=== PATIENT | female | born 1960 | race Caucasian/White ===

== ENCOUNTER 2016-06-09 02:53 | Emergency (ER) | payer OTHER ==
[~2016-06-09] VITALS: Ht 152.4 cm; Wt 68.9 kg
[~2016-06-09 02:53] MED LIST: ALBU2.5V5 NEB; ALIS150T PO; ALPR0.5T6 PO; AMIO200T2 NG; AMIO200T2 PO; AMLO10TA2 PO; AMLO10TA4 PO; APRE30TA2 PO; ASPI-482 PO; ASPI81TA9 PO; ATOR40TA PO; ATOR40TA59 PO; BUDE0.5A NEB; BUDE10.2 IH; CEFP100T PO; CLOP75TA27 PO; ESCI10TA PO; ESCI10TA10 PO; FULV250D IM; FURO-68 PO; FURO40TA4 PO; IPRA3AMP NEB; LISI-334 PO; LISI10TA2 PO; LISI2.5T PO; LISI40TA PO; LOSA1TAB17 PO; METH4TAB2 PO; METO100T11 PO; METO25TA9 PO; METO50TA2 PO; MULT-208 PO; MULT1TAB90 PO; NAPR500T PO; NAPR500T3 PO; NIAC500T PO; ONDA8TAB9 PO; OXYC-323 PO; OXYC10SY PO; OXYC10TA PO; OXYC15TA PO; OXYC15TA60 PO; OXYC30TA PO; OXYC40TA21 PO; OXYC60TA7 PO; PANT40TA3 PO; PANT40TA5 PO; POTA10CA PO; POTA20TA4 PO; POTA20TA82 PO; PRAS10TA4 PO; PROAIR HFA8.5 GM INH
[2016-06-09 03:34] LABS: BASO # 0.1 x10^3/uL (0.0-0.2); BASO % 1 % (0-3); EOS % 8 % (0-3); HEMATOCRIT 28.3 % (36.0-47.0); HEMOGLOBIN 9.1 g/dL (12.0-15.5); LYMPH # 1.4 x10^3/uL (1.0-4.8); LYMPH % 21 % (24-48); MEAN CORPUSCULAR HEMOGLOBIN 27 pg (25-35); MEAN CORPUSCULAR HGB CONC 32 g/dL (31-37); MEAN CORPUSCULAR VOLUME 84 fL (79-100); MONO % 7 % (0-9); NEUT % 63 % (31-73); PLATELET COUNT 278 x10^3/uL (140-400); RED BLOOD COUNT 3.38 x10^6/uL (3.50-5.40); RED CELL DISTRIBUTION WIDTH 16.5 % (11.5-14.5); WHITE BLOOD COUNT 6.9 x10^3/uL (4.0-11.0)
[2016-06-09 03:42] LABS: BARBITURATES NEG (NEG); BENZODIAZEPINES NEG (NEG); CANNABINOIDS NEG (NEG); COCAINE NEG (NEG); ETHANOL, URINE NEG (NEG); METHADONE NEG (NEG); OPIATES POS (NEG); PHENCYCLIDINE NEG (NEG)
[2016-06-09 03:45] LABS: CALCIUM 8.6 mg/dL (8.5-10.1); GFR 57.8; POTASSIUM 3.9 mmol/L (3.5-5.1)
--- NOTE | 2016-06-09 03:47 | PHYS DOC ---
Past Medical History Past Medical History: Anxiety, Bipolar, CAD, Cancer, CHF, COPD, Depression, GERD, High Cholesterol, Hypertension, [place], MRSA, Pneumonia Additional Past Medical Histor: SLEEP APNEA BREAST CA METS TO SPINE BACK PAIN Past Surgical History: Appendectomy Additional Past Surgical Histo: MASTECTOMY Alcohol Use: None Drug Use: None Adult General Chief Complaint Chief Complaint: SHORTNESS OF BREATH HPI HPI Patient is a 55 year old female who presents with in episode of difficulty breathing that occurred tonight. She went to bed feeling well, and woke with difficulty breathing and anxiety. She used an albuterol nebulizer and had resolution of her symptoms. She came here to make sure that she did not have recurring pneumonia. She states she becomes very anxious about sleeping since her cardiac arrest in April. She does however state she has gained 10 pounds in the past week. She states she is compliant with her medications as prescribed. She currently denies dyspnea, cough, fever or chills, palpitations, diaphoresis, chest pain, nausea or vomiting, abdominal pain, leg pain or swelling. She also asked for some pain medication while here for her chronic back pain. Review of Systems Review of Systems Constitutional: Denies fever or chills [] Eyes: Denies change in visual acuity, redness, or eye pain [] HENT: Denies nasal congestion or sore throat [] Respiratory: Denies cough [] Cardiovascular: No additional information not addressed in HPI [] GI: Denies abdominal pain, nausea, vomiting, bloody stools or diarrhea [] : Denies dysuria or hematuria [] Musculoskeletal: Denies back pain or joint pain [] Integument: Denies rash or skin lesions [] Neurologic: Denies headache, focal weakness or sensory changes [] Endocrine: Denies polyuria or polydipsia [] Current Medications Current Medications Current Medications Medications (Trade) Dose Ordered Sig/Reagan Start Time Stop Time Status Last Admin Dose Admin Furosemide (Lasix) 20 mg 1X ONCE 06/09/16 04:30 06/09/16 04:31 06/09/16 04:21 20 MG Morphine Sulfate 5 mg 1X ONCE 06/09/16 04:30 06/09/16 04:31 06/09/16 04:22 5 MG Allergies Allergies Allergies Coded Allergies Type Severity Reaction Last Updated Verified propoxyphene Allergy Severe 06/09/16 Yes Latex, Natural Rubber Allergy Intermediate 10/12/14 Yes duloxetine Allergy Intermediate 06/09/16 Yes propoxyphene HCl Allergy Intermediate 10/12/14 Yes I S O L A T I O N *CONTACT* Allergy Unknown 04/03/16 Yes tramadol Adverse Reaction Intermediate Nausea and Vomiting 04/03/16 Yes Physical Exam Physical Exam Constitutional: Well developed, well nourished, no acute distress, non-toxic appearance. [] HENT: Normocephalic, atraumatic, bilateral external ears normal, oropharynx moist, nose normal. [] Eyes: PERRLA, EOMI. [] Neck: Normal range of motion, supple, no stridor. [] Cardiovascular:Heart rate regular rhythm [] Lungs & Thorax: Bilateral breath sounds clear to auscultation [] Abdomen: Bowel sounds normal, soft, no tenderness. [] Skin: Warm, dry. [] Back: No tenderness, no CVA tenderness. [] Extremities: No tenderness, ROM intact, bilateral 1+ lower extremity edema, no palpable cord. [] Neurologic: Alert and oriented X 3, normal motor function, normal sensory function, no focal deficits noted. [] Psychologic: Affect normal, judgement normal, mood normal. [] Current Patient Data Vital Signs Vital Signs Date Time Temp Pulse Resp B/P Pulse Ox O2 Delivery O2 Flow Rate FiO2 06/09/16 04:22 16 Room Air 06/09/16 03:05 98.3 101 194/96 97 98.3 Lab Values Laboratory Tests Test 06/09/16 03:05 06/09/16 03:11 White Blood Count 6.9x10^3/uL (4.0-11.0) Red Blood Count 3.38x10^6/uL (3.50-5.40) L Hemoglobin 9.1g/dL (12.0-15.5) L Hematocrit 28.3% (36.0-47.0) L Mean Corpuscular Volume 84fL (79-100) Mean Corpuscular Hemoglobin 27pg (25-35) Mean Corpuscular Hemoglobin Concent 32g/dL (31-37) Red Cell Distribution Width 16.5% (11.5-14.5) H Platelet Count 278x10^3/uL (140-400) Neutrophils (%) (Auto) 63% (31-73) Lymphocytes (%) (Auto) 21% (24-48) L Monocytes (%) (Auto) 7% (0-9) Eosinophils (%) (Auto) 8% (0-3) H Basophils (%) (Auto) 1% (0-3) Neutrophils # (Auto) 4.4x10^3uL (1.8-7.7) Lymphocytes # (Auto) 1.4x10^3/uL (1.0-4.8) Monocytes # (Auto) 0.5x10^3/uL (0.0-1.1) Eosinophils # (Auto) 0.5x10^3/uL (0.0-0.7) Basophils # (Auto) 0.1x10^3/uL (0.0-0.2) Sodium Level 138mmol/L (136-145) Potassium Level 3.9mmol/L (3.5-5.1) Chloride Level 100mmol/L (98-107) Carbon Dioxide Level 30mmol/L (21-32) Anion Gap 8 (6-14) Blood Urea Nitrogen 10mg/dL (7-20) Creatinine 1.0mg/dL (0.6-1.0) Estimated GFR (Cockcroft-Gault) 57.8 Glucose Level 93mg/dL (70-99) Calcium Level 8.6mg/dL (8.5-10.1) Troponin I Quantitative 0.033ng/mL (0.000-0.055) [id number]-[id number]-G-Type Natriuretic Peptide 1253pg/mL (0-124) H Urine Opiates Screen Pos (NEG) Urine Methadone Screen Neg (NEG) Urine Barbiturates Neg (NEG) Urine Phencyclidine Screen Neg (NEG) Urine Amphetamine/Methamphetamine Neg (NEG) Urine Benzodiazepines Screen Neg (NEG) Urine Cocaine Screen Neg (NEG) Urine Cannabinoids Screen Neg (NEG) Urine Ethyl Alcohol Neg (NEG) Laboratory Tests 06/09/16 03:05 Laboratory Tests 06/09/16 03:05 EKG EKG EKG as interpreted by me as sinus tachycardia, rate 102, no ST-T changes, normal intervals, no ectopy Radiology/Procedures Radiology/Procedures Chest xray as interpreted by me with no acute cardiopulmonary disease process Course & Med Decision Making Course & Med Decision Making Pertinent Labs and Imaging studies reviewed. (See chart for details) Workup is largely unremarkable, including chest x-ray and laboratory improvement from prior exam. With history of weight gain and lower extremity swelling, will give extra dose of Lasix. Encouraged to watch liquid intake and follow-up with her primary care doctor and special trackwork blacksmith. Return precautions given. She understands and agrees with plan. Dragon Disclaimer Dragon Disclaimer This electronic medical record was generated, in whole or in part, using a voice recognition dictation system. Departure Departure Impression: Primary Impression: Anxiety Additional Impressions: Dyspnea, unspecified CHF (congestive heart failure) Back pain Disposition: HOME, SELF-CARE Condition: STABLE Referrals: MOMO CONSTANTINO MD (PCP) Patient Instructions: Heart Failure, [id number] Additional Instructions: Continue your current medications. Follow-up with your primary care doctor and special trackwork blacksmith within one week. Please call for appointment. Return for any concerns. Problem Qualifiers Additional Impressions: CHF (congestive heart failure) Congestive heart failure type: unspecified congestive heart failure type Congestive heart failure chronicity: chronic Qualified Code: I50.9 - Heart failure, unspecified Back pain Back pain location: low back pain Chronicity: chronic Back pain laterality : midline Sciatica presence: without sciatica Qualified Code: M54.5 - Low back pain Alonzo GOODE MD Jun 09, 2016 03:47
[2016-06-09] MEDS ORDERED: FUROSEMIDE 20 MG/2 ML VIAL IVP ONE (04:30)
[2016-06-09] MEDS ORDERED: MORPHINE SULFATE 10 MG/ML VIAL. IV ONE (04:30)
[2016-06-09 04:35] VITALS: BP 132/79
--- NOTE | 2016-06-09 06:16 | EKG ---
[facility] [address] [place] [address] Test Date: 2016-06-09 Test Time: 03:07:20 Pat Name: JOCELYN NICHOLSON Department: Room: Gender: F Caterers Helper: TW EMT : 1960 Requested By: Alonzo GOODE Order Number: [id number] Reading MD: Floyd Escobar Measurements Intervals [place] Rate: 102 P: 40 [place]: 144 QRS: -5 QRSD: 100 T: 26 QT: 338 QTc: 445 Interpretive Statements SINUS TACHYCARDIA QRS(T) CONTOUR ABNORMALITY CONSIDER ANTEROSEPTAL MYOCARDIAL DAMAGE CONSISTENT WITH INFERIOR INFARCT Electronically Signed On 06-10-2016 15:31:41 HEALTH FACILITIES SURVEYOR by Floyd Escobar
--- NOTE | 2016-06-09 07:17 | RAD ---
EXAM: Chest, 2 views. HISTORY: Shortness of breath. COMPARISON: 05/14/2016. FINDINGS: Frontal and lateral views of the chest are obtained. There is stable mild diffuse increased interstitial opacity. There is no consolidation, effusion or pneumothorax. The heart is normal in size.. IMPRESSION: Stable diffuse increased interstitial opacity suggesting congestion.
== END 2016-06-09 04:43 | disposition home or self-care (01) ==
LOC: ER 02:53
DX: F41.9 Anxiety disorder, unspecified (principal); G89.29 Other chronic pain; M54.5 Low back pain; R06.00 Dyspnea, unspecified; I50.9 Heart failure, unspecified; I11.0 Hypertensive heart disease with heart failure; I25.2 Old myocardial infarction; E78.00 Pure hypercholesterolemia, unspecified; G47.30 Sleep apnea, unspecified; J44.9 Chronic obstructive pulmonary disease, unspecified; Z88.6 Allergy status to analgesic agent; Z88.8 Allergy status to other drugs, medicaments and biological substances; Z91.041 Radiographic dye allergy status; Z91.040 Latex allergy status
CPT/HCPCS: 36415; 71020; 80048; 83880; 84484; 85027; 93005; 96374; 96375; 99285; G0481; J2270

== ENCOUNTER 2016-06-21 15:17 | Emergency (ER) | payer OTHER ==
[~2016-06-21] VITALS: Ht 157.5 cm; Wt 70.8 kg
[2016-06-21] MEDS ORDERED: PREDNISONE 10 MG TABLET PO ONE (15:45)
[2016-06-21] MEDS ORDERED: MORPHINE SULFATE 4 MG/ML DISP.SYRIN. IV ONE (15:45)
[2016-06-21] MEDS ORDERED: IPRATRPIUM/ALBUTEROL 0.5/2.5MG 3 ML NEBU. NEB ONE (15:45)
--- NOTE | 2016-06-21 15:50 | PHYS DOC ---
Past Medical History Past Medical History: Anxiety, Bipolar, CAD, Cancer, CHF, COPD, Depression, GERD, High Cholesterol, Hypertension, [place], MRSA, Pneumonia Additional Past Medical Histor: SLEEP APNEA BREAST CA METS TO SPINE BACK PAIN Past Surgical History: Appendectomy Additional Past Surgical Histo: MASTECTOMY Alcohol Use: None Drug Use: None Adult General Chief Complaint Chief Complaint: SHORTNESS OF BREATH HPI HPI Patient is a 55 year old female with extensive PMH who presents with SOB. Patient reports she has been feeling SOB since her admission to the hospital in May (when she had cardiac arrest). Today she felt like she just could not catch her breath. She also reports wheezing and cough. Patient denies chest pain. She does complain of chronic back pain. No clear inciting or mitigating factors. She has used her COPD inhalers at home with insufficient relief. Review of Systems Review of Systems Constitutional: Denies fever or chills Eyes: Denies change in visual acuity or eye pain HENT: Denies nasal congestion or sore throat Respiratory: Cough, shortness of breath, wheezing Cardiovascular: Denies chest pain GI: Denies abdominal pain, nausea, vomiting, bloody stools or diarrhea : Denies dysuria or hematuria Musculoskeletal: Chronic back pain Integument: Chronic skin sores Neurologic: Denies headache, focal weakness or sensory changes Current Medications Current Medications Current Medications Medications (Trade) Dose Ordered Sig/Reagan Start Time Stop Time Status Last Admin Dose Admin Albuterol/ Ipratropium (Duoneb) 3 ml 1X ONCE 06/21/16 15:45 06/21/16 15:47 DC 06/21/16 16:06 3 ML Morphine Sulfate 4 mg 1X ONCE 06/21/16 15:45 06/21/16 15:47 DC 06/21/16 16:32 4 MG Prednisone (Prednisone) 60 mg 1X ONCE 06/21/16 15:45 06/21/16 15:47 DC 06/21/16 16:32 60 MG Allergies Allergies Allergies Coded Allergies Type Severity Reaction Last Updated Verified propoxyphene Allergy Severe 06/09/16 Yes Latex, Natural Rubber Allergy Intermediate 10/12/14 Yes duloxetine Allergy Intermediate 06/09/16 Yes propoxyphene HCl Allergy Intermediate 10/12/14 Yes I S O L A T I O N *CONTACT* Allergy Unknown 04/03/16 Yes tramadol Adverse Reaction Intermediate Nausea and Vomiting 04/03/16 Yes Physical Exam Physical Exam Constitutional: Well developed, well nourished, no acute distress, non-toxic appearance HENT: Normocephalic, atraumatic, bilateral external ears normal Eyes: EOMI, conjunctiva normal, no discharge Neck: Normal range of motion, no stridor Cardiovascular: Heart rate normal, regular rhythm, murmur noted Lungs & Thorax: Diffuse expiratory wheezing Abdomen: Bowel sounds normal, soft, non-distended, no TTP Skin: Warm, dry. Scattered skin ulcers in various stages of healing. Extremities: No obvious deformity, no edema Neurologic: Alert and oriented X 3, no gross deficits noted Current Patient Data Vital Signs Vital Signs Date Time Temp Pulse Resp B/P Pulse Ox O2 Delivery O2 Flow Rate FiO2 06/21/16 16:32 24 95 Room Air 06/21/16 15:40 98.7 68 148/89 98.7 Lab Values Laboratory Tests Test 06/21/16 16:20 White Blood Count 6.4x10^3/uL (4.0-11.0) Red Blood Count 3.51x10^6/uL (3.50-5.40) Hemoglobin 9.3g/dL (12.0-15.5) L Hematocrit 28.3% (36.0-47.0) L Mean Corpuscular Volume 81fL (79-100) Mean Corpuscular Hemoglobin 26pg (25-35) Mean Corpuscular Hemoglobin Concent 33g/dL (31-37) Red Cell Distribution Width 17.0% (11.5-14.5) H Platelet Count 261x10^3/uL (140-400) Neutrophils (%) (Auto) 75% (31-73) H Lymphocytes (%) (Auto) 12% (24-48) L Monocytes (%) (Auto) 9% (0-9) Eosinophils (%) (Auto) 4% (0-3) H Basophils (%) (Auto) 1% (0-3) Neutrophils # (Auto) 4.8x10^3uL (1.8-7.7) Lymphocytes # (Auto) 0.8x10^3/uL (1.0-4.8) L Monocytes # (Auto) 0.5x10^3/uL (0.0-1.1) Eosinophils # (Auto) 0.2x10^3/uL (0.0-0.7) Basophils # (Auto) 0.0x10^3/uL (0.0-0.2) Sodium Level 140mmol/L (136-145) Potassium Level 3.9mmol/L (3.5-5.1) Chloride Level 103mmol/L (98-107) Carbon Dioxide Level 27mmol/L (21-32) Anion Gap 10 (6-14) Blood Urea Nitrogen 7mg/dL (7-20) Creatinine 0.9mg/dL (0.6-1.0) Estimated GFR (Cockcroft-Gault) 65.2 Glucose Level 87mg/dL (70-99) Calcium Level 8.7mg/dL (8.5-10.1) Troponin I Quantitative 0.028ng/mL (0.000-0.055) [id number]-C-Type Natriuretic Peptide 954pg/mL (0-124) H Laboratory Tests 06/21/16 16:20 Laboratory Tests 06/21/16 16:20 EKG EKG EKG (my read): sinus rhythm, rate 61, normal axis, intervals wnl, no acute ischemic changes Radiology/Procedures Radiology/Procedures CXR (my read): No significant change from prior two films Course & Med Decision Making Course & Med Decision Making Pertinent Labs and Imaging studies reviewed. (See chart for details) Patient is 55 year old female who presents with SOB. Suspect COPD exacerbation based on history and physical exam. Dose of prednisone and Duonebs ordered. Will check EKG, CXR, labs to evaluate. EKG ok per my read. CXR similar to prior per my read. Labs notable for slightly elevated BNP; this value is lower than past few values and patient does not appear overloaded clinically. Troponin continues to trend down from April. Discussed results with patient, who reports SOB resolved after treatments. Discussed inpatient vs outpatient management of COPD with patient; she would like to go home today if possible. Given extensive medical history, I discussed case with Dr. Constantino. As patient feeling better and already has appt with Dr. Constantino scheduled for this upcoming week, ok to send patient home with steroid burst. Patient says she has sufficient inhalers at home and does not need rx for refill. I gave patient strict return precautions and counseled on the importance of making sure she makes follow up appt. Patient discharged home with rx for steroid burst. Neo Disclaimer Jannon Disclaimer This electronic medical record was generated, in whole or in part, using a voice recognition dictation system. Departure Departure Impression: Primary Impression: COPD exacerbation Disposition: HOME, SELF-CARE Condition: IMPROVED Referrals: MOMO CONSTANTINO MD (PCP) Patient Instructions: Chronic Obstructive Pulmonary Disease Exacerbation Additional Instructions: Thank you for allowing us to provide care today in the Emergency Department. Take the provided medication as directed. Continue to use the inhalers that you have at home. Keep your follow up appointment with your primary care doctor. Return promptly to the Emergency Department if you develop any new or concerning symptoms. Scripts Prednisone 50 Mg Tablet1 Tab PO DAILY #4 TAB start taking 06/22/16 Prov:SHANELLE CASE MD 06/21/16 SHANELLE CASE MD Jun 21, 2016 15:49
[2016-06-21 16:30] VITALS: BP 117/86
[2016-06-21 16:36] LABS: BASO % 1 % (0-3); EOS % 4 % (0-3); HEMATOCRIT 28.3 % (36.0-47.0); HEMOGLOBIN 9.3 g/dL (12.0-15.5); LYMPH # 0.8 x10^3/uL (1.0-4.8); LYMPH % 12 % (24-48); MEAN CORPUSCULAR HEMOGLOBIN 26 pg (25-35); MEAN CORPUSCULAR HGB CONC 33 g/dL (31-37); MEAN CORPUSCULAR VOLUME 81 fL (79-100); MONO % 9 % (0-9); NEUT % 75 % (31-73); PLATELET COUNT 261 x10^3/uL (140-400); RED BLOOD COUNT 3.51 x10^6/uL (3.50-5.40); WHITE BLOOD COUNT 6.4 x10^3/uL (4.0-11.0)
[2016-06-21 16:57] LABS: CALCIUM 8.7 mg/dL (8.5-10.1); CREATININE 0.9 mg/dL (0.6-1.0); GFR 65.2; POTASSIUM 3.9 mmol/L (3.5-5.1)
[2016-06-21] MEDS ORDERED: PRED50TA PO (17:39)
--- NOTE | 2016-06-22 08:52 | RAD ---
Chest, 2 views, 06/21/2016: History: Shortness of breath, hypertension Comparison is made to a study from 06/09/2016. The heart is mildly enlarged. Coronary stents and/or calcifications are present. There is calcific plaquing of the thoracic aorta. The pulmonary vascularity is normal. There is minimal linear atelectasis and/or scarring in the left base. No consolidating infiltrate is seen. There is no evidence of pleural fluid. Moderate multilevel degenerative changes are evident in the spine. IMPRESSION: 1. Mild left basilar linear atelectasis and/or scarring. 2. Mild cardiomegaly with coronary artery disease.
--- NOTE | 2016-06-22 11:36 | EKG ---
[facility] [address] [place] [address] Test Date: 2016-06-21 Test Time: 15:28:44 Pat Name: JOCELYN INCHOLSON Department: Room: Gender: F Compounder Flavorings: : 1960 Requested By: SHANELLE CASE Order Number: [id number] Reading MD: Anastasiia Gallegos Measurements Intervals [place] Rate: 61 P: 39 [place]: 162 QRS: 6 QRSD: 98 T: 22 QT: 406 QTc: 410 Interpretive Statements SINUS RHYTHM QRS(T) CONTOUR ABNORMALITY CONSIDER ANTEROLATERAL MYOCARDIAL DAMAGE AGE UNDETERMINED ABNORMAL ECG Electronically Signed On 06-23-2016 0:36:24 SPINDLE SANDER by Anastasiia Gallegos
== END 2016-06-21 17:45 | disposition home or self-care (01) ==
LOC: ER 15:17
DX: J44.1 Chronic obstructive pulmonary disease with (acute) exacerbation (principal); E78.00 Pure hypercholesterolemia, unspecified; I25.2 Old myocardial infarction; G47.30 Sleep apnea, unspecified; I50.9 Heart failure, unspecified; G89.29 Other chronic pain; I25.10 Atherosclerotic heart disease of native coronary artery without angina pectoris; Z88.8 Allergy status to other drugs, medicaments and biological substances; Z88.6 Allergy status to analgesic agent; Z91.041 Radiographic dye allergy status; Z91.040 Latex allergy status
CPT/HCPCS: 36415; 71020; 80048; 83880; 84484; 85027; 93005; 94640; 96374; 99285; J2270; J7512; J7620

== ENCOUNTER 2016-07-10 05:22 | Emergency (ER) | payer OTHER ==
[~2016-07-10] VITALS: Ht 157.5 cm; Wt 73.5 kg
[~2016-07-10 05:22] MED LIST changes: +PRED50TA PO
--- NOTE | 2016-07-10 05:48 | PHYS DOC ---
Past Medical History Past Medical History: Anxiety, Bipolar, CAD, Cancer, CHF, COPD, Depression, GERD, High Cholesterol, Hypertension, [place], MRSA, Pneumonia Additional Past Medical Histor: SLEEP APNEA, BREAST CA METS TO SPINE, BACK PAIN Past Surgical History: Appendectomy Additional Past Surgical Histo: MASTECTOMY Alcohol Use: None Drug Use: None Adult General Chief Complaint Chief Complaint: SHORTNESS OF BREATH HPI HPI Patient is a 55 year old female with complex past medical history who presents with difficulty breathing upon awakening. She notes feeling in her normal state of health prior to going to bed. She woke up short of breath and felt wheezy and used her home nebulizer with some improvement in symptoms, but not complete resolution. She denies orthopnea, weight gain, chest pain, palpitations, diaphoresis, hemoptysis, leg pain or swelling, abdominal pain, nausea or vomiting, fever or chills. She was treated for COPD exacerbation with prednisone burst starting 06/21/16. She has an appointment with her primary care doctor this afternoon. Review of Systems Review of Systems Constitutional: Denies fever or chills [] Eyes: Denies change in visual acuity, redness, or eye pain [] HENT: Denies nasal congestion or sore throat [] Respiratory: Denies cough [] Cardiovascular: No additional information not addressed in HPI [] GI: Denies abdominal pain, nausea, vomiting, bloody stools or diarrhea [] : Denies dysuria or hematuria [] Musculoskeletal: Denies back pain or joint pain [] Integument: Denies rash or skin lesions [] Neurologic: Denies headache, focal weakness or sensory changes [] Endocrine: Denies polyuria or polydipsia [] Current Medications Current Medications Current Medications Medications (Trade) Dose Ordered Sig/Reagan Start Time Stop Time Status Last Admin Dose Admin Albuterol/ Ipratropium (Duoneb) 3 ml 1X ONCE 07/10/16 06:00 07/10/16 06:01 DC 07/10/16 05:51 3 ML Allergies Allergies Allergies Coded Allergies Type Severity Reaction Last Updated Verified propoxyphene Allergy Severe 06/09/16 Yes Latex, Natural Rubber Allergy Intermediate 10/12/14 Yes duloxetine Allergy Intermediate 06/09/16 Yes propoxyphene HCl Allergy Intermediate 10/12/14 Yes I S O L A T I O N *CONTACT* Allergy Unknown 04/03/16 Yes tramadol Adverse Reaction Intermediate Nausea and Vomiting 04/03/16 Yes Physical Exam Physical Exam Constitutional: Well developed, well nourished, no acute distress, non-toxic appearance. [] HENT: Normocephalic, atraumatic, bilateral external ears normal, oropharynx moist, nose normal. [] Eyes: PERRLA, EOMI. [] Neck: Normal range of motion, supple. [] Cardiovascular: Heart rate regular rhythm [] Lungs & Thorax: Mild bilateral wheezing, good aeration, normal respiratory effort, speaking in full sentences [] Abdomen: Bowel sounds normal, soft, no tenderness. [] Skin: Warm, dry, no erythema, no rash. [] Back: Normal range of motion. [] Extremities: No tenderness, ROM intact, trace pretibial edema bilaterally, no palpable cord. [] Neurologic: Alert and oriented X 3, normal motor function, normal sensory function, no focal deficits noted. [] Psychologic: Affect normal, judgement normal, mood normal. [] Current Patient Data Vital Signs Vital Signs Date Time Temp Pulse Resp B/P Pulse Ox O2 Delivery O2 Flow Rate FiO2 07/10/16 05:52 97 Room Air 07/10/16 05:32 98.2 96 22 117/86 98.2 Lab Values Laboratory Tests Test 07/10/16 05:35 White Blood Count 5.9x10^3/uL (4.0-11.0) Red Blood Count 3.59x10^6/uL (3.50-5.40) Hemoglobin 9.1g/dL (12.0-15.5) L Hematocrit 29.0% (36.0-47.0) L Mean Corpuscular Volume 81fL (79-100) Mean Corpuscular Hemoglobin 26pg (25-35) Mean Corpuscular Hemoglobin Concent 32g/dL (31-37) Red Cell Distribution Width 17.2% (11.5-14.5) H Platelet Count 253x10^3/uL (140-400) Neutrophils (%) (Auto) 61% (31-73) Lymphocytes (%) (Auto) 25% (24-48) Monocytes (%) (Auto) 8% (0-9) Eosinophils (%) (Auto) 6% (0-3) H Basophils (%) (Auto) 1% (0-3) Neutrophils # (Auto) 3.6x10^3uL (1.8-7.7) Lymphocytes # (Auto) 1.4x10^3/uL (1.0-4.8) Monocytes # (Auto) 0.4x10^3/uL (0.0-1.1) Eosinophils # (Auto) 0.3x10^3/uL (0.0-0.7) Basophils # (Auto) 0.1x10^3/uL (0.0-0.2) Sodium Level 142mmol/L (136-145) Potassium Level 3.6mmol/L (3.5-5.1) Chloride Level 105mmol/L (98-107) Carbon Dioxide Level 28mmol/L (21-32) Anion Gap 9 (6-14) Blood Urea Nitrogen 8mg/dL (7-20) Creatinine 0.8mg/dL (0.6-1.0) Estimated GFR (Cockcroft-Gault) 74.7 Glucose Level 130mg/dL (70-99) H Calcium Level 8.7mg/dL (8.5-10.1) Laboratory Tests 07/10/16 05:35 Laboratory Tests 07/10/16 05:35 EKG EKG EKG as interpreted by me as normal sinus rhythm, rate 94, no ST-T changes, normal intervals, no ectopy Course & Med Decision Making Course & Med Decision Making Pertinent Labs and Imaging studies reviewed. (See chart for details) 0600: Transition care to Dr. Verdin at shift change pending neb, XR and labs. Patient stable upon transfer of care. -MD Neo Guaman Disclaimer Dragon Disclaimer This electronic medical record was generated, in whole or in part, using a voice recognition dictation system. Departure Departure Impression: Primary Impression: Dyspnea, unspecified Referrals: MOMO CONSTANTINO MD (PCP) Alonzo GOODE MD Jul 10, 2016 05:48
[2016-07-10 05:57] LABS: BASO # 0.1 x10^3/uL (0.0-0.2); BASO % 1 % (0-3); EOS % 6 % (0-3); HEMOGLOBIN 9.1 g/dL (12.0-15.5); LYMPH # 1.4 x10^3/uL (1.0-4.8); LYMPH % 25 % (24-48); MEAN CORPUSCULAR HEMOGLOBIN 26 pg (25-35); MEAN CORPUSCULAR HGB CONC 32 g/dL (31-37); MEAN CORPUSCULAR VOLUME 81 fL (79-100); MONO % 8 % (0-9); NEUT % 61 % (31-73); PLATELET COUNT 253 x10^3/uL (140-400); RED BLOOD COUNT 3.59 x10^6/uL (3.50-5.40); RED CELL DISTRIBUTION WIDTH 17.2 % (11.5-14.5); WHITE BLOOD COUNT 5.9 x10^3/uL (4.0-11.0)
[2016-07-10] MEDS ORDERED: IPRATRPIUM/ALBUTEROL 0.5/2.5MG 3 ML NEBU. NEB ONE (06:00)
[2016-07-10 06:01] LABS: CALCIUM 8.7 mg/dL (8.5-10.1); CREATININE 0.8 mg/dL (0.6-1.0); GFR 74.7; POTASSIUM 3.6 mmol/L (3.5-5.1)
--- NOTE | 2016-07-10 06:30 | EKG ---
[facility] [address] [place] [address] Test Date: 2016-07-10 Test Time: 05:30:55 Pat Name: JOCELYN NICHOLSON Department: Room: Gender: F Shaper Setter: : 1960 Requested By: Alonzo GOODE Order Number: [id number] Reading MD: Anastasiia Gallegos Measurements Intervals [place] Rate: 94 P: 52 [place]: 152 QRS: -3 QRSD: 98 T: 16 QT: 358 QTc: 453 Interpretive Statements SINUS RHYTHM LEFTWARD AXIS QRS(T) CONTOUR ABNORMALITY CONSISTENT WITH INFERIOR INFARCT AGE UNDETERMINED RI6.01 Unconfirmed report Compared to ECG 06/21/2016 15:28:44 Left-axis deviation now present Myocardial infarct finding now present Electronically Signed On 07-13-2016 15:42:53 SENIOR FINANCIAL ANALYST by Anastasiia Gallegos
[2016-07-10] MEDS ORDERED: FUROSEMIDE 40 MG/4 ML VIAL IVP ONE (07:00)
--- NOTE | 2016-07-10 07:20 | RAD ---
2 view CXR: Comparison: June 21, 2016. Clinical indications: Dyspnea. Findings: No acute lung infiltrate or pleural effusion or pulmonary edema or lung mass or pneumothorax is seen. The heart size, pulmonary vasculature, mediastinum and both james are stable. The osseous structures appear intact. Impression: No acute radiographic abnormality is seen.
[2016-07-10 07:54] VITALS: BP 139/92
== END 2016-07-10 07:56 | disposition home or self-care (01) ==
LOC: ER 05:22
DX: R06.00 Dyspnea, unspecified (principal); I11.0 Hypertensive heart disease with heart failure; I50.9 Heart failure, unspecified; E78.00 Pure hypercholesterolemia, unspecified; G47.30 Sleep apnea, unspecified; I25.2 Old myocardial infarction; I25.10 Atherosclerotic heart disease of native coronary artery without angina pectoris; J44.1 Chronic obstructive pulmonary disease with (acute) exacerbation; K21.9 Gastro-esophageal reflux disease without esophagitis; Z90.49 Acquired absence of other specified parts of digestive tract; Z86.14 Personal history of Methicillin resistant Staphylococcus aureus infection; Z88.8 Allergy status to other drugs, medicaments and biological substances; Z88.6 Allergy status to analgesic agent; Z91.041 Radiographic dye allergy status; Z91.040 Latex allergy status
CPT/HCPCS: 36415; 71020; 80048; 83880; 84484; 85027; 93005; 94250; 94640; 96374; 99285; J1940; J7620

== ENCOUNTER 2016-07-19 03:26 | Emergency (ER) | payer OTHER ==
[~2016-07-19] VITALS: Ht 157.5 cm; Wt 73.5 kg
[2016-07-19] MEDS ORDERED: NITROGLYCERIN SUBLINGUAL 0.4 MG BOTTLE OF 25. SL PRN (03:45)
[2016-07-19 04:14] LABS: BASO # 0.1 x10^3/uL (0.0-0.2); BASO % 1 % (0-3); EOS % 3 % (0-3); HEMATOCRIT 31.5 % (36.0-47.0); HEMOGLOBIN 10.1 g/dL (12.0-15.5); LYMPH # 1.5 x10^3/uL (1.0-4.8); LYMPH % 18 % (24-48); MEAN CORPUSCULAR HEMOGLOBIN 26 pg (25-35); MEAN CORPUSCULAR HGB CONC 32 g/dL (31-37); MEAN CORPUSCULAR VOLUME 79 fL (79-100); MONO % 8 % (0-9); NEUT % 70 % (31-73); PLATELET COUNT 262 x10^3/uL (140-400); RED BLOOD COUNT 3.98 x10^6/uL (3.50-5.40); RED CELL DISTRIBUTION WIDTH 17.5 % (11.5-14.5); WHITE BLOOD COUNT 8.2 x10^3/uL (4.0-11.0)
[2016-07-19 04:24] LABS: INR 1.2 (0.8-1.1); PROTHROMBIN TIME PATIENT 14.5 SEC (11.7-14.0)
[2016-07-19 04:30] LABS: ALBUMIN 3.7 g/dL (3.4-5.0); ALBUMIN/GLOBULIN RATIO 1.1 (1.0-1.7); CALCIUM 9.4 mg/dL (8.5-10.1); CREATININE 0.9 mg/dL (0.6-1.0); GFR 65.2; TOTAL BILIRUBIN 0.5 mg/dL (0.2-1.0); TOTAL PROTEIN 7.1 g/dL (6.4-8.2)
[2016-07-19] MEDS ORDERED: ONDANSETRON PF 4 MG/2 ML VIAL. IV ONE (04:30)
[2016-07-19] MEDS ORDERED: IPRATRPIUM/ALBUTEROL 0.5/2.5MG 3 ML NEBU. NEB ONE (04:30)
[2016-07-19 05:00] LABS: BILIRUBIN,URINE NEGATIVE (NEG); GLUCOSE,URINE NEGATIVE (NEG); NITRITE,URINE NEGATIVE (NEG); PROTEIN,URINE NEGATIVE (NEG-TRACE); UROBILINOGEN,URINE 0.2 mg/dL (0.2 mg/dL)
[2016-07-19 05:07] LABS: BARBITURATES NEG (NEG); BENZODIAZEPINES NEG (NEG); CANNABINOIDS NEG (NEG); COCAINE NEG (NEG); METHADONE NEG (NEG); OPIATES POS (NEG); PHENCYCLIDINE NEG (NEG)
[2016-07-19 05:09] LABS: BACTERIA,URINE 0 /HPF (0-FEW); RBC,URINE 0 /HPF (0-2); SQUAMOUS EPITHELIAL CELL,UR FEW /LPF
[2016-07-19] MEDS ORDERED: CONTRAST GIVEN MC PRN (05:15)
[2016-07-19] MEDS ORDERED: POTASSIUM CHLORIDE 20 MEQ/15 ML ORAL LIQUID. PO ONE (05:15)
[2016-07-19] MEDS ORDERED: IOHEXOL 300 MG/ML 75 ML VIAL IV ONE (05:30)
[2016-07-19 05:41] LABS: ETHANOL, URINE NEG (NEG)
--- NOTE | 2016-07-19 05:42 | RAD ---
PROCEDURE CT chest with contrast, pulmonary angiogram. HISTORY Shortness of breath, chest pain. Breast cancer with metastases. History of pulmonary embolus. TECHNIQUE Helical CT imaging of the chest is performed after 75 cc Omnipaque 300 IV contrast using pulmonary angiogram protocol. A coronal 3D MIP reconstruction is performed to better evaluate the pulmonary arteries. PQRS: One or more the following individualized dose reduction techniques were utilized for the study: 1. Automated exposure control. 2. Adjustment of the mA and/or kV according to patient size. 3. Use of iterative reconstruction technique. COMPARISON CT chest with contrast, pulmonary angiogram October 12, 2014. FINDINGS The pulmonary arteries are adequately contrast opacified to the segmental pulmonary artery level. Subsegmental pulmonary arteries are not well evaluated. There is no CT evidence of pulmonary embolus. There is no thoracic aortic dissection. Thyroid is symmetric. There is right mastectomy. Subcentimeter right axillary lymph nodes. Partially calcified subcarinal lymph node. No mediastinal or hilar adenopathy. Three vessel coronary artery disease. Calcific aortic stenosis. Borderline cardiomegaly. No pericardial effusion. No pleural effusion is seen. Central airways are patent. There is moderate respiratory motion artifact, limiting evaluation. Minimal atelectasis or scarring in the lower lobes in the inferior lingula. No suspicious pulmonary nodules identified. Stable left adrenal nodule. Hypodensity in the right hepatic lobe is less well seen but is still present. There are lytic bone metastases, for example of the sternum. There are multiple bilateral rib fractures, fractures could be pathologic. IMPRESSION 1. No CT evidence of pulmonary embolus. 2. Lytic bone metastasis of the sternum. Multiple bilateral rib fractures, fractures may be pathologic. 3. Borderline cardiomegaly. 4. Unchanged left adrenal nodule and hypodense right hepatic mass. Electronically signed by: Deshaun Hines MD (Jul 19, 2016 05:40:14)
[2016-07-19 05:46] LABS: OBC FLU VALID
[2016-07-19 06:00] VITALS: BP 111/61
[2016-07-19] MEDS ORDERED: MORPHINE SULFATE 4 MG/ML DISP.SYRIN. IV ONE (06:00)
[2016-07-19] MEDS ORDERED: LIDOCAINE (700MG/PATCH) PATCH. TD ONE (07:00)
[2016-07-19] MEDS ORDERED: OXYCODONE IR 5 MG TABLET. PO ONE (07:00)
[2016-07-19] MEDS ORDERED: LIDO700A4 TP (07:04)
[2016-07-19] MEDS ORDERED: OXYC30TA PO (07:04)
[2016-07-19] MEDS ORDERED: OXYCODONE ER 15 MG TAB.ER.12H. PO SCH (07:30)
--- NOTE | 2016-07-19 08:02 | RAD ---
Indication chest pain. A single view of the chest was obtained and is compared to an examination 9 days earlier. There is mild cardiomegaly unchanged. There are likely background changes of fibrosis. A consolidated pneumonia is not seen. There has not been a significant change in the appearance of the chest compared to the previous exam. IMPRESSION: No acute finding. No significant change
--- NOTE | 2016-07-19 08:04 | ED.ADGEN ---
Past Medical History Past Medical History: Anxiety, Bipolar, CAD, Cancer, CHF, COPD, Depression, GERD, High Cholesterol, Hypertension, NH, MRSA, Pneumonia Additional Past Medical Histor: SLEEP APNEA, BREAST CA METS TO SPINE, BACK PAIN Past Surgical History: Appendectomy Additional Past Surgical Histo: MASTECTOMY Alcohol Use: None Drug Use: None Adult General Chief Complaint Chief Complaint: SHORTNESS OF BREATH HPI HPI Patient is a 55 year old [woman, with a history of breast cancer, with disease metastatic to spine, DVT, on anticoagulation, who is currently undergoing oral chemotherapy, hypertension, and lower disorder, who presents emergency Department with a complaint of increasing shortness of breath, and pain in her ribs bilaterally. Patient states that she has been taking her OxyContin and oxycodone home as directed, is taking 60 OxyContin twice daily, and 30 mg oxycodone 6 times daily. She states this has been controlling her pain up to this point, but she has run out of her medication and has 3 days until she follows up with her doctor. She denies any fevers or chills, complains of a mild cough without productive sputum, no abdominal pain, no urinary complaints, no focal weakness numbness or tingling. Flu vaccination noted vaccination are up to date. Review of Systems Review of Systems Constitutional: Denies fever or chills. [] Eyes: Denies change in visual acuity. [] HENT: Denies nasal congestion or sore throat. [] Respiratory: Cough, with increasing shortness of breath for the past several days. Cardiovascular: Bilateral chest pain, no edema.] GI: Denies abdominal pain, nausea, vomiting, bloody stools or diarrhea. [] : Denies dysuria. [] Musculoskeletal: Denies back pain or joint pain. [] Integument: Denies rash. [] Neurologic: Denies headache, focal weakness or sensory changes. [] Endocrine: Denies polyuria or polydipsia. [] Lymphatic: Denies swollen glands. [] Psychiatric: Denies depression or anxiety. [] Current Medications Current Medications Current Medications Medications (Trade) Dose Ordered Sig/Reagan Start Time Stop Time Status Last Admin Dose Admin Albuterol/ Ipratropium (Duoneb) 3 ml 1X ONCE 07/19/16 04:30 07/19/16 04:31 DC 07/19/16 04:24 3 ML Info (Do NOT chart on this entry -- for MONITORING) 1 each PRN DAILY PRN 07/19/16 05:15 07/19/16 07:08 DC Iohexol (Omnipaque 300 Mg/ml) 75 ml 1X ONCE 07/19/16 05:30 07/19/16 05:31 DC 07/19/16 05:29 75 ML Lidocaine (Lidoderm) 2 patch 1X ONCE 07/19/16 07:00 07/19/16 07:01 DC 07/19/16 06:29 2 PATCH Morphine Sulfate 4 mg 1X ONCE 07/19/16 06:00 07/19/16 06:01 DC 07/19/16 05:55 4 MG Nitroglycerin (Nitrostat) 0.4 mg PRN Q5MIN PRN 07/19/16 03:45 07/19/16 07:08 DC Ondansetron HCl (Zofran) 4 mg 1X ONCE 07/19/16 04:30 07/19/16 04:31 DC 07/19/16 04:18 4 MG Oxycodone HCl (Oxycontin) 60 mg Q12HR 07/19/16 07:30 07/19/16 07:30 DC 07/19/16 07:01 60 MG Oxycodone HCl (Roxicodone) 30 mg 1X ONCE 07/19/16 07:00 07/19/16 07:01 DC 07/19/16 07:01 30 MG Potassium Chloride (KCl Oral Soln) 40 meq 1X ONCE 07/19/16 05:15 07/19/16 05:16 DC 07/19/16 05:55 40 MEQ Allergies Allergies Allergies Coded Allergies Type Severity Reaction Last Updated Verified propoxyphene Allergy Severe 06/09/16 Yes Latex, Natural Rubber Allergy Intermediate 10/12/14 Yes duloxetine Allergy Intermediate 06/09/16 Yes propoxyphene HCl Allergy Intermediate 10/12/14 Yes I S O L A T I O N *CONTACT* Allergy Unknown 04/03/16 Yes tramadol Adverse Reaction Intermediate Nausea and Vomiting 04/03/16 Yes Physical Exam Physical Exam Constitutional: Well developed, well nourished, no acute distress, non-toxic appearance. [] HENT: Normocephalic, atraumatic, bilateral external ears normal, oropharynx moist, no oral exudates, nose normal. [] Eyes: PERRLA, EOMI, conjunctiva normal, no discharge. [] Neck: Normal range of motion, no tenderness, supple, no stridor. [] Cardiovascular:Heart rate regular rhythm, no murmur [] Lungs & Thorax: Bilateral breath sounds clear to auscultation [] Abdomen: Bowel sounds normal, soft, no tenderness, no masses, no pulsatile masses. [] Skin: Warm, dry, no erythema, no rash. [] Back: No tenderness, no CVA tenderness. [] Extremities: No tenderness, no cyanosis, no clubbing, ROM intact, no edema. [] Neurologic: Alert and oriented X 3, normal motor function, normal sensory function, no focal deficits noted. [] Psychologic: Affect normal, judgement normal, mood normal. [] Current Patient Data Vital Signs Vital Signs Date Time Temp Pulse Resp B/P Pulse Ox O2 Delivery O2 Flow Rate FiO2 07/19/16 06:00 76 111/61 91 Room Air 07/19/16 04:04 98.9 24 98.9 Lab Values Laboratory Tests Test 07/19/16 04:00 07/19/16 04:45 07/19/16 05:19 White Blood Count 8.2x10^3/uL (4.0-11.0) Red Blood Count 3.98x10^6/uL (3.50-5.40) Hemoglobin 10.1g/dL (12.0-15.5) L Hematocrit 31.5% (36.0-47.0) L Mean Corpuscular Volume 79fL (79-100) Mean Corpuscular Hemoglobin 26pg (25-35) Mean Corpuscular Hemoglobin Concent 32g/dL (31-37) Red Cell Distribution Width 17.5% (11.5-14.5) H Platelet Count 262x10^3/uL (140-400) Neutrophils (%) (Auto) 70% (31-73) Lymphocytes (%) (Auto) 18% (24-48) L Monocytes (%) (Auto) 8% (0-9) Eosinophils (%) (Auto) 3% (0-3) Basophils (%) (Auto) 1% (0-3) Neutrophils # (Auto) 5.7x10^3uL (1.8-7.7) Lymphocytes # (Auto) 1.5x10^3/uL (1.0-4.8) Monocytes # (Auto) 0.6x10^3/uL (0.0-1.1) Eosinophils # (Auto) 0.3x10^3/uL (0.0-0.7) Basophils # (Auto) 0.1x10^3/uL (0.0-0.2) Prothrombin Time 14.5SEC (11.7-14.0) H Prothrombin Time INR 1.2 (0.8-1.1) H PTT 33SEC (24-38) Sodium Level 137mmol/L (136-145) Potassium Level 3.0mmol/L (3.5-5.1) L Chloride Level 98mmol/L (98-107) Carbon Dioxide Level 29mmol/L (21-32) Anion Gap 10 (6-14) Blood Urea Nitrogen 10mg/dL (7-20) Creatinine 0.9mg/dL (0.6-1.0) Estimated GFR (Cockcroft-Gault) 65.2 BUN/Creatinine Ratio 11 (6-20) Glucose Level 144mg/dL (70-99) H Calcium Level 9.4mg/dL (8.5-10.1) Total Bilirubin 0.5mg/dL (0.2-1.0) Aspartate Amino Transferase (AST) 24U/L (15-37) Alanine Aminotransferase (ALT) 26U/L (14-59) Alkaline Phosphatase 154U/L (46-116) H Troponin I Quantitative 0.021ng/mL (0.000-0.055) WO-Tmk-M-Type Natriuretic Peptide 1486pg/mL (0-124) H Total Protein 7.1g/dL (6.4-8.2) Albumin 3.7g/dL (3.4-5.0) Albumin/Globulin Ratio 1.1 (1.0-1.7) Lipase 84U/L (73-393) Urine Collection Type Unknown Urine Color Yellow Urine Clarity Clear Urine pH 6.0 Urine Specific Bowman <=1.005 Urine Protein Negativemg/dL (NEG-TRACE) Urine Glucose (UA) Negativemg/dL (NEG) Urine Ketones (Stick) Negativemg/dL (NEG) Urine Blood Negative (NEG) Urine Nitrite Negative (NEG) Urine Bilirubin Negative (NEG) Urine Urobilinogen Dipstick 0.2mg/dL (0.2 mg/dL) Urine Leukocyte Esterase Trace (NEG) Urine RBC 0/HPF (0-2) Urine WBC 1-4/HPF (0-4) Urine Squamous Epithelial Cells Few/LPF Urine Bacteria 0/HPF (0-FEW) Urine Opiates Screen Pos (NEG) Urine Methadone Screen Neg (NEG) Urine Barbiturates Neg (NEG) Urine Phencyclidine Screen Neg (NEG) Urine Amphetamine/Methamphetamine Neg (NEG) Urine Benzodiazepines Screen Neg (NEG) Urine Cocaine Screen Neg (NEG) Urine Cannabinoids Screen Neg (NEG) Urine Ethyl Alcohol Neg (NEG) Influenza Type A Antigen Negative (NEGATIVE) Influenza Type B Antigen Negative (NEGATIVE) Laboratory Tests 07/19/16 04:00 Laboratory Tests 07/19/16 04:00 EKG EKG ECG: Sinus rhythm, heart rate 79 bpm, left axis deviation, QTC of 451, IL 92, QRS of 98, Q waves noted in the inferior leads, abnormal ECG, does not meet STEMI criteria. As interpreted by me. [] Radiology/Procedures Radiology/Procedures [] [facility] [address] [place] [address] IMAGING REPORT Signed PATIENT: JOCELYN NICHOLSON ACCOUNT: [id number] : 1960 LOCATION: ER AGE: 55 SEX: F EXAM STATUS: REG ER ORD. PHYSICIAN: REMEDIOS PAGE DO REASON: CP/SOB/Breast Ca w// mets, hx PE on anticoag PROCEDURE: CTA CHEST PROCEDURE CT chest with contrast, pulmonary angiogram. HISTORY Shortness of breath, chest pain. Breast cancer with metastases. History of pulmonary embolus. TECHNIQUE Helical CT imaging of the chest is performed after 75 cc Omnipaque 300 IV contrast using pulmonary angiogram protocol. A coronal 3D MIP reconstruction is performed to better evaluate the pulmonary arteries. PQRS: One or more the following individualized dose reduction techniques were utilized for the study: 1. Automated exposure control. 2. Adjustment of the mA and/or kV according to patient size. 3. Use of iterative reconstruction technique. COMPARISON CT chest with contrast, pulmonary angiogram October 12, 2014. FINDINGS The pulmonary arteries are adequately contrast opacified to the segmental pulmonary artery level. Subsegmental pulmonary arteries are not well evaluated. There is no CT evidence of pulmonary embolus. There is no thoracic aortic dissection. Thyroid is symmetric. There is right mastectomy. Subcentimeter right axillary lymph nodes. Partially calcified subcarinal lymph node. No mediastinal or hilar adenopathy. Three vessel coronary artery disease. Calcific aortic stenosis. Borderline cardiomegaly. No pericardial effusion. No pleural effusion is seen. Central airways are patent. There is moderate respiratory motion artifact, limiting evaluation. Minimal atelectasis or scarring in the lower lobes in the inferior lingula. No suspicious pulmonary nodules identified. Stable left adrenal nodule. Hypodensity in the right hepatic lobe is less well seen but is still present. There are lytic bone metastases, for example of the sternum. There are multiple bilateral rib fractures, fractures could be pathologic. IMPRESSION 1. No CT evidence of pulmonary embolus. 2. Lytic bone metastasis of the sternum. Multiple bilateral rib fractures, fractures may be pathologic. 3. Borderline cardiomegaly. 4. Unchanged left adrenal nodule and hypodense right hepatic mass. Electronically signed by: Deshaun Hines MD (Jul 19, 2016 05:40:14) DICTATED and SIGNED BY: DESHAUN HINES MD DATE: 07/19/16 0540 CC: REMEDIOS PAGE DO; MOMO CONSTANTINO MD ~ Course & Med Decision Making Course & Med Decision Making Pertinent Labs and Imaging studies reviewed. (See chart for details) due to patient's history and complaints, with respirophasic chest pain, history of DVT with active chemotherapy for breast cancer with known metastases, CT of the chest obtained after x-rays do not reveal any obvious source of the patient's discomfort. CTA is negative for PE, however reveals bilateral rib fractures which are likely pathologic in nature, with metastases to the spine and sternum. I did discuss these findings with patient, she is resting more comfortably after receiving morphine IV and placement of Lidoderm patch in the emergency department. We did discuss admission to the hospital for continued medical management. Patient states that she would prefer to go home, and she believes that her pain be managed appropriately with her current medication regimen, she is relieved to know that she does not have a blood clot or evidence of concerning infection. Patient was ambulated in the emergency department, heart rate in the 80s, oxygen saturation in the mid 90s, without any difficulty. She received her home dose of OxyContin and oxycodone, I did discuss with her that it is very important discuss her pain needs with her primary care provider, has she is using all of her breakthrough medication dosages at this time. Patient states that she has adequate amounts of her OxyContin until she is able to follow-up on Thursday with Dr. Brandt, was given a total of #30 oxycodone 30 mg tablets, along with Lidoderm patches and incentive spirometry, to follow-up with her primary care provider as discussed, and return to the ED if any concerning symptoms develop. Dragon Disclaimer Dragon Disclaimer This electronic medical record was generated, in whole or in part, using a voice recognition dictation system. Departure Impression: Primary Impression: Ribs, multiple fractures Additional Impression: Metastatic breast cancer Disposition: HOME, SELF-CARE Condition: IMPROVED Scripts Oxycodone Hcl 30 Mg Tablet1 Tab PO Q4HRS #30 TAB Prov:REMEDIOS PAGE DO 07/19/16 Lidocaine (Lidoderm)700 Mg Adh..patch1 Patch TP DAILY PRN rib pain #30 PATCH Ref 1 Prov:REMEDIOS PAGE DO 07/19/16 Problem Qualifiers Primary Impression: Ribs, multiple fractures Encounter type: initial encounter Fracture type: closed Laterality: bilateral Qualified Code: S22.43XA - Multiple fractures of ribs, bilateral, initial encounter for closed fracture REMEDIOS PAGE DO Jul 19, 2016 08:04
--- NOTE | 2016-07-19 12:27 | EKG ---
[facility] [address] [place] [address] Test Date: 2016-07-19 Test Time: 03:45:13 Pat Name: JOCELYN NICHOLSON Department: Patient ID: [id number] Room: Gender: F Manager Telecom: MERI ER : 1960 Requested By: REMEDIOS PAGE Order Number: [id number] Reading MD: Dharmesh Chan Measurements Intervals [place] Rate: 79 P: -90 [place]: 92 QRS: -3 QRSD: 98 T: -34 QT: 388 QTc: 451 Interpretive Statements SINUS RHYTHM LEFTWARD AXIS QRS(T) CONTOUR ABNORMALITY CONSISTENT WITH INFERIOR INFARCT AGE UNDETERMINED ABNORMAL ECG RI6.01 Compared to ECG 07/10/2016 05:30:55 Supraventricular rhythm now present Sinus rhythm no longer present Myocardial infarct finding still present Electronically Signed On 08-04-2016 9:48:27 [employer] by Dharmesh Chan
== END 2016-07-19 07:08 | disposition home or self-care (01) ==
LOC: ER 03:26
DX: S22.43XA Multiple fractures of ribs, bilateral, initial encounter for closed fracture (principal); C79.81 Secondary malignant neoplasm of breast; C79.51 Secondary malignant neoplasm of bone; E78.00 Pure hypercholesterolemia, unspecified; I25.2 Old myocardial infarction; G47.30 Sleep apnea, unspecified; I11.0 Hypertensive heart disease with heart failure; I50.9 Heart failure, unspecified; I25.10 Atherosclerotic heart disease of native coronary artery without angina pectoris; K21.9 Gastro-esophageal reflux disease without esophagitis; F31.9 Bipolar disorder, unspecified; F41.9 Anxiety disorder, unspecified; J44.9 Chronic obstructive pulmonary disease, unspecified; Z79.01 Long term (current) use of anticoagulants; Z79.899 Other long term (current) drug therapy; Z92.21 Personal history of antineoplastic chemotherapy; Z90.49 Acquired absence of other specified parts of digestive tract; Z88.5 Allergy status to narcotic agent; Z88.8 Allergy status to other drugs, medicaments and biological substances; Z91.040 Latex allergy status; Z91.041 Radiographic dye allergy status; Z90.10 Acquired absence of unspecified breast and nipple; Z86.14 Personal history of Methicillin resistant Staphylococcus aureus infection; Z86.711 Personal history of pulmonary embolism; Z79.891 Long term (current) use of opiate analgesic; Z86.718 Personal history of other venous thrombosis and embolism; X58.XXXA Exposure to other specified factors, initial encounter; Y93.89 Activity, other specified; Y99.8 Other external cause status; Y92.89 Other specified places as the place of occurrence of the external cause
CPT/HCPCS: 36415; 71010; 71275; 80053; 81001; 83690; 83880; 84484; 85027; 85610; 85730; 87086; 87804; 93005; 94250; 94640; 96374; 96375; 99285; G0481; J2270; J2405; J7620; Q9967